=== PATIENT | male | born 1995 | race Caucasian/White ===

== ENCOUNTER 2016-04-21 08:40 | Day surgery (SDC) | payer OTHER ==
[~2016-04-21 08:40] MED LIST: CLINDAMYCIN 900 MG/D5W RTU 50 ML IV PRN; LIDOCAINE 2% INJ-PF (20 MG/ML) 10 ML AMPUL ONE; NORMAL SALINE 1000 ML 1,000 ML IV PRN; ONDANSETRON HCL INJ/PF 4 MG/2 ML SDV ONE
[2016-04-21] MEDS ORDERED: BUPIVACAINE HCL 0.25 % INJ/PF (2.5 MG/1 ML) 30 ML VIAL ONE (10:39)
[2016-04-21] MEDS ORDERED: FENTANYL CITRATE INJ/PF 100 MCG/2 ML AMPUL ONE (11:30)
[2016-04-21] MEDS ORDERED: DEXMEDETOMIDINE INJ 80 MCG/20 ML VIAL IV ONE (11:31)
[2016-04-21] MEDS ORDERED: MIDAZOLAM 2 MG/2 ML INJ ONE (11:31)
[2016-04-21] MEDS ORDERED: PROPOFOL INJ 200 MG/20 ML VIAL IV ONE (11:31)
[2016-04-21] MEDS ORDERED: PROMETHAZINE HCL INJ 25 MG/1 ML VIAL IV PRN (12:41)
[2016-04-21] MEDS ORDERED: MEPERIDINE HCL/PF INJ 25 MG/1 ML DISP.SYRIN IV PRN (12:41)
[2016-04-21] MEDS ORDERED: MORPHINE SULFATE 10 MG/ML INJ IV PRN (12:41)
[2016-04-21] MEDS ORDERED: DIPHENHYDRAMINE HCL 50 MG/ML VIAL IV PRN (12:41)
[2016-04-21] MEDS ORDERED: FENTANYL CITRATE INJ/PF 100 MCG/2 ML AMPUL IV PRN ×3 (12:41)
[2016-04-21] MEDS ORDERED: OXYCODONE-ACETAMINOPHEN 5-325 MG TABLET PO PRN (14:04)
[2016-04-21] MEDS ORDERED: HYDROMORPHONE HCL INJ/PF 2 MG/ML AMPULE IV PRN (14:04)
[2016-04-21] MEDS ORDERED: ONDANSETRON HCL INJ/PF 4 MG/2 ML SDV IV PRN (14:05)
[2016-04-21 15:25] VITALS: BP 112/64
--- NOTE | 2016-04-21 17:13 | OPERATIVE REPORT E ---
Operative Report NAME: SHASHI SHELTON : 1995 AGE: 21Y DATE OF SURGERY: 04/21/2016 ROOM: INDICATIONS FOR PROCEDURE: The patient is a 21-year-old male with a history of left grade-2 varicocele and scrotal pain. He was counseled on the risks, benefits and side effects of a left-sided varicocelectomy and consented to proceed. PREOPERATIVE DIAGNOSIS: LEFT GRADE-2 VARICOCELE. POSTOPERATIVE DIAGNOSIS: LEFT GRADE-2 VARICOCELE. OPERATION: Left microscopic varicocelectomy. SURGEON: LEILA AIKEN D.O. EGG SEPARATOR: Dr. Nithin Jerry, Attending Commander, [facility]. ANESTHESIA: General. INTRAVENOUS FLUIDS: 900 mL lactated Ringer's. ESTIMATED BLOOD LOSS: Less than 5 mL. URINE OUTPUT: Zero. TISSUE REMOVED OR ALTERED: None. DRAINS: None. FINDINGS: He had 3 dilated veins in his pampiniform plexus. DESCRIPTION OF PROCEDURE: The patient was met in the preoperative holding area and risks, benefits and side effects of a left-sided microscopic varicocelectomy were again reviewed with the patient and he consented to proceed. He was brought to the operative theater and placed on the table in a supine position where general anesthesia was induced. He was then sterilely prepped and draped in the usual fashion. A time-out was performed to ensure proper patient, proper procedure, and proper laterality being the left. Preoperative antibiotics administered. With all in agreement, we proceeded. A 4 cm incision was made just superior and lateral to the external inguinal ring and deepened down to the external oblique muscle. This was entered in the direction of its fibers with Metzenbaum scissors and then the spermatic cord dissected from its surroundings with blunt dissection. This cord was isolated with a Wanda drain and then the internal and external spermatic fascia were entered with electrocautery. We discovered 3 dilated veins in the pampiniform plexus which were dissected bluntly from the surrounding artery, which was identified with ultrasound. The dilated veins sequentially tied with 4-0 silk ties and the cord returned to the canal. A cord block was performed with 0.25% Marcaine. We then closed the external oblique fascia with a running 2-0 Vicryl suture and the fascia was injected with 0.25% Marcaine as well as Clarice fascia was closed with interrupted 3-0 Vicryl sutures as were the subcutaneous tissues. Then a running 4-0 Monocryl was used to close the skin and subcuticular fascia. The skin sealed with Dermabond and then the scrotal support and fluff gauze were placed. The patient tolerated the procedure well and was awakened and taken to the PACU in good condition. At the conclusion of the case, all sponge, instrument and needle counts were complete and correct. DICTATING PHYSICIAN: LEILA AIKEN D.O. [id number] PHY#: [id number] ID: [id number] JOB#: [id number] ACCT: [id number] cc:LEILA AIKEN D.O. >
== END 2016-04-21 15:25 | disposition home or self-care (01) ==
LOC: OROUT 08:40 → EDBD 10:30 → OROUT 15:25
PROVIDERS: ATTEND Surgery
PROC: 0VBG0ZZ Excision of Left Spermatic Cord, Open Approach (ICD-10-PCS; principal; 2016-04-21 10:30)
DX: I86.1 Scrotal varices (principal); Z88.0 Allergy status to penicillin
CPT/HCPCS: 55535; J2250; J3010; J2405; J2704; J3490 ×2; 920